=== PATIENT | female | born 1960 | race Caucasian/White ===

== ENCOUNTER → 2017-03-27 | Outpatient (CLI) | payer OTHER ==
--- NOTE | 2017-03-27 17:46 | DIAGNOSTIC IMAGING REPORT ---
CHEST 2 VIEWS ROUTINE CLINICAL HISTORY: 56 years-old Female presenting with HX OF SKIN MALIGNANCY OF SKIN MALIGNANCY. TECHNIQUE: PA and lateral views of the chest were obtained. COMPARISON: CT of the chest from 2015. FINDINGS: Atherosclerosis of aortic arch. Cardiac silhouette normal in size. Lungs and pleural spaces clear. Osseous structures normal. Cholecystectomy clips noted. IMPRESSION: 1. No acute cardiopulmonary disease. Notably, the sensitivity of radiography for intrathoracic metastases is low. If there is clinical concern for thoracic metastatic involvement, CT of the chest should be obtained. Electronically signed by: Luis Antonio Spencer M.D. 03/27/2017 5:44 PM Dictated Date/Time: 03/27/2017 5:43 PM
== END | disposition home or self-care (01) ==
LOC: C.RAD 16:48
PROVIDERS: ATTEND Dermatology
DX: Z85.828 Personal history of other malignant neoplasm of skin (principal)

== ENCOUNTER → 2017-05-21 | Outpatient (CLI) | payer OTHER ==
--- NOTE | 2017-05-21 20:21 | DIAGNOSTIC IMAGING REPORT ---
CERVICAL SPINE MRI HISTORY: Neck pain. M48.02 Degenerative cervical spinal stenosis [id number] TECHNIQUE: Multiplanar multisequence MRI of the cervical spine was performed without the use of contrast. COMPARISON STUDY: Neck CT 06/10/2015. FINDINGS: Alignment and curvature intact. No fracture or subluxation. Prevertebral soft tissues and the C1-C2 interval are intact. The visualized posterior fossa is unremarkable. There is a 1.7 cm heterogeneous right thyroid nodule. Mild to moderate disc space narrowing at C5-C6 and C6-C7. Cervical spinal cord demonstrates a normal signal intensity. C2-C3: No significant central canal or neural foraminal narrowing. C3-C4: No significant central canal or neural foraminal narrowing. Tiny broad-based posterior disc bulge. C4-C5: No significant central canal or neural foraminal narrowing. Tiny broad-based posterior disc bulge. C5-C6: Broad-based posterior disc osteophyte complex resulting in near-complete effacement of the anterior thecal sac without cord deformity. Moderate right and severe left neural foraminal narrowing. C6-C7: Small broad-based posterior disc osteophyte complex without significant central canal or right-sided neural foraminal narrowing. There is mild left-sided neural foraminal narrowing. C7-T1: No significant central canal or neural foraminal narrowing. IMPRESSION: 1. Broad-based posterior disc osteophyte complex at C5-C6 resulting in mild central canal narrowing. There is also moderate right and severe left-sided neural foraminal narrowing. 2. Mild left-sided neural foraminal narrowing at C6-C7. 3. Tiny broad-based posterior disc bulges at C3-C4 and C4-C5 without significant central canal narrowing Electronically signed by: Cam Perez M.D. 05/21/2017 8:19 PM Dictated Date/Time: 05/21/2017 8:13 PM
== END | disposition home or self-care (01) ==
LOC: C.MRI 18:55
PROVIDERS: ATTEND Psychiatry & Neurology Neurology
DX: M48.02 Spinal stenosis, cervical region (principal)

== ENCOUNTER 2023-11-13 05:12 | Observation (INO) ==
--- NOTE | 2023-10-22 11:52 | PAT Medication Instructions ---
Medication Instructions Date of Service October 22, 2023 Home Medications omeprazole 40 mg capsule,delayed release 40 mg PO QAM adalimumab 40 mg/0.8 mL subcutaneous syringe kit (Humira) 40 mg subcut Q14D ezetimibe 10 mg tablet 10 mg PO QAM alirocumab 150 mg/mL subcutaneous pen injector (Praluent Pen) 150 mg subcut Q14D duloxetine 60 mg capsule,delayed release 60 mg PO QAM ASK your prescriber and surgeon adalimumab 40 mg/0.8 mL subcutaneous syringe kit (Humira) 40 mg subcut Q14D alirocumab 150 mg/mL subcutaneous pen injector (Praluent Pen) 150 mg subcut Q14D Take morning of surgery With a small sip of water, OTHERWISE NOTHING TO EAT OR DRINK AFTER MIDNIGHT: omeprazole 40 mg capsule,delayed release 40 mg PO QAM ezetimibe 10 mg tablet 10 mg PO QAM duloxetine 60 mg capsule,delayed release 60 mg PO QAM Other Notes If you have any questions please call us at [phone] or [phone] or [phone] or [phone]
--- NOTE | 2023-10-25 12:13 | Anesthesiology Consultation ---
Date of Service October 25, 2023 Assessment & Plan (1) Encounter for pre-operative examination: - awaiting response to optimization form regarding ongoing albuterol inhaler use and 1 cm left upper lobe nodule (pt mentioned at PAT visit she was overdue for monitoring imaging of nodule) and upcoming PCP office visit 10/28/23 per patient. - will request most recent Dr. Mccord cardiology office visit note and any available echocardiogram or stress echo testing if completed. - PONV: has had scop patch in past with benefit without adverse effects: to anesthesiologist determination am DOS regarding plan. Chart Review Chart Review: Pending: Refer to Additional Notes / Consult section and Patient seen in Pre Admission Testing Teaching & Discussion Pre-Anesthesia Teaching/Discussion Notes: Instructed NPO after midnight before surgery, except medications with 15 cc of water. Medication instructions provided according to the [facility] guidelines. History Surgery Operation Date: 11/13/23 07:00 Proposed Procedures p Right Total Hip Arthroplasty Possible Cemented Stem - Christopher Bonilla MD Height/Weight Height: 5 ft 7 in Weight: 79.5 kg Allergies Allergy/AdvReac Type Severity Reaction Status Date / Time guselkumab [From Tremfya] Allergy Mild Rash Verified 10/22/23 08:54 Medications Home Medications Medication Instructions Recorded Confirmed Last Taken omeprazole 40 mg capsule,delayed 40 mg PO QAM 03/18/19 10/22/23 09/25/23 release adalimumab 40 mg/0.8 mL 40 mg subcut Q14D 04/08/19 10/22/23 09/10/23 subcutaneous syringe kit (Humira) ezetimibe 10 mg tablet 10 mg PO QAM 05/31/21 10/22/23 09/10/23 alirocumab 150 mg/mL subcutaneous 150 mg subcut Q14D 09/06/23 10/22/23 09/15/23 pen injector (Praluent Pen) duloxetine 60 mg capsule,delayed 60 mg PO QAM 09/06/23 10/22/23 09/25/23 release albuterol 90 mcg/actuation aerosol mcg inhalation 10/25/23 Unknown inhaler ibuprofen 200 mg tablet 200 mg PO Q6H PRN Pain 10/25/23 10/25/23 Unknown oxymetazoline 0.05 % nasal spray 2 spray intranasal Q12H PRN Nasal 10/25/23 10/25/23 Unknown (Long Acting Nasal [place]) Congestion vitamin C 500 mg-multivitamin with 1 tab PO BID 10/25/23 10/25/23 Unknown minerals chewable tablet (Emergen-C) Additional Notes: Patient was instructed to discuss ibuprofen instructions with surgeon. Emergen-C to be stopped 2 weeks before surgery. She was advised she can take a Vitamin C, zinc supplement for her immune health. She was advised can continue nasal spray as usual. She verbalized understanding and agreement, denied questions, concerns or additional medications. This was also written on provided medication instructions. 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 Lumbar disc herniation Lung nodules found on MRI chest Nausea and vomiting after administration of anesthetic agent had scop patch with second cataract procedure-denies adverse effects Palmoplantar pustular psoriasis Patient denies h/o stroke, seizures, heart attack, heart failure, DM, HTN, blood clots/DVTs or blood transfusions. Exercise / Class Metabolic Activity III < 4 Walking/Shop/Light housework (denies chest discomfort or shortness of breath with usual activities) Past Family History Family History Father Cardiac disorder Other No family history of adverse response to anesthesia Past Surgical History Surgical History History of bilateral tubal ligation History of colonoscopy History of esophagogastroduodenoscopy (EGD) History of lung biopsy History of tooth extraction Hx of cataract extraction R/L S/P cholecystectomy S/P knee surgery left Past Anesthesia History No Hx of Anesthesia Complications and No Family Hx of Anesthesia Complications History of PONV No Hx of Motion Sickness and History of PONV (with first cataract, had scop patch for second cataract procedure without adverse effects) Social History Smoking Status: Current every day smoker (-advised) Smoking cigarettes per day: 20 Do You Dip or Chew Tobacco: No Hx Alcohol Use: No Hx Substance Use: Yes substance use type: marijuana (-advised) Last Used Substance Other:: daily Review of Systems 10/13/23: pharyngitis, cough, nasal congestion, diagnosed by PCP as having bronchitis-Rx albuterol inhaler, Z pack and prednisone taper which are all completed and symptoms resolved. She reports slight recurrence of nasal congestion several days ago-resolved the past several days/feels back at baseline. She continues to use albuterol inhaler in evening as notes it resolves coughing at night which preceded 10/13/23 illness. Denies change in chronic cough the past few days, shortness of breath, wheezing, fever, chills, rash, myalgias, nausea or vomiting. Occasional snoring, denies witnessed apneas. Patient denies chest pain, shortness of breath, or dyspnea on exertion. Physical Exam Vital Signs Vitals BP 107/64 P 76 TEMP 98 SP02 94% on RA RESP 17 Physical Patient resting comfortably in chair in no acute distress, alert and oriented, responding appropriately throughout visit Full cervical extension range of motion without pain TMD 3.5 finger breadths Mallampati Score 2 Dentition: full upper and lower implants placed yesterday (patient states surgeon is aware)-I also notified surgeon's office, denies chipped or loose implants Lungs: normal respiratory effort. Good air movement, clear throughout to auscultation, no adventitious breath sounds Cardiac: regular rate and rhythm, no murmurs noted Carotid arteries: negative bruit bilat Lab Results Anesthesia Preop Results Results Anesthesia Widget: WBC 10.64 K/ul (4.8-10.8) 10/25/23 Hgb 14.0 g/dl (12.0-16.0) 10/25/23 Hct 40.9 % (37.0-47.0) 10/25/23 Plt 393 K/uL (130-400) 10/25/23 Na 140 mmol/L (136-145) 10/25/23 K 4.2 mmol/L (3.5-5.1) 10/25/23 Cl 109 mmol/L (98-107) H 10/25/23 CO2 24 mmol/L (21-32) 10/25/23 BUN 16 mg/dl (6-23) 10/25/23 Creat 0.60 mg/dl (0.6-1.2) 10/25/23 Glucose Level 88 mg/dl (70-99(Fasting)) 10/25/23 PT 10.0 Seconds (9.0-12.0) 10/25/23 PTT 29 Seconds (21-31) 10/25/23 INR 0.9 (0.9-1.1) 10/25/23 TSH 0.845 uIu/ml (0.300-4.500) 10/25/23 Urine Color Dark Yellow 10/25/23 Urine Appearance Clear (Clear) 10/25/23 Urine pH 5.5 (4.5-7.5) 10/25/23 Urine Specific [place] 1.024 (1.000-1.030) 10/25/23 Urine Protein Negative (Negative) 10/25/23 Urine Glucose (UA) Negative (Negative) 10/25/23 Urine Ketones Negative (Negative) 10/25/23 Urine Blood Negative (Negative) 10/25/23 Urine Nitrite Negative (Negative) 10/25/23 Urine Bilirubin Negative (Negative) 10/25/23 Urine Urobilinogen Negative (Negative) 10/25/23 Urine Leukocyte Esterase Negative (Negative) 10/25/23 Blood Type A Positive 10/25/23 Antibody Screen NEGATIVE 10/25/23 Testing Electrocardiogram Date: 10/25/23 NSR, rate 69 bpm Chest X-Ray Date: 10/25/23 A 1 cm left upper lobe nodule. Follow-up chest CT recommended for further evaluation. This report was called/faxed to the referring physician following dictation.
--- NOTE | 2023-10-30 16:47 | History & Physical Report ---
Date of Service October 30, 2023 Assessment & Plan (1) Osteoarthritis of right hip: Plan: PRE-OP Diagnosis: Right hip osteoarthritis Planned Procedure: Right total hip arthroplasty possible cemented stem Plan: Patient is scheduled to undergo this procedure at the [facility] with a 23-hour observation admission with Dr. Bonilla on Monday, November 13, 2023. Risks and complications of the procedure such as: Infection, bleeding, pain, scarring, nerve blood vessel damage, weakness, wound problems, stiffness, incomplete relief of symptoms, hardware failure, hardware loosening, wear, fracture, tendon or ligament injury, dislocation, limb length inequality, blood clots, embolism, heart attack, stroke and were explained to the patient at her visit today. Informed consent to perform the procedure injury will be signed with Dr. Bonilla present on the day of the procedure. Patient also understands risks of proceeding with surgical intervention during the COVID-19 pandemic. Currently she is asymptomatic has not been in contact with anyone positive for the virus recently. 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 She is scheduled to meet with physical therapy today and we will obtain a CBC with differential, complete metabolic panel, PT/INR, PTT, blood type and screen, urinalysis, urine culture and sensitivity, EKG, chest x-ray. Patient's chest x-ray showed a mass in her left upper lobe and a CT scan performed after discharge from our clinic. Patient states that she plans on doing in-home physical therapy for the first 1 to 2 weeks postoperatively and then would like to transition to outpatient physical therapy in our PT clinic.. Patient will need a walker, raised toilet seat, shower chair and a hip kit. During today's visit we reviewed the total hip packet as well as precautions. We discussed discharge planning from the hospital. I provided paperwork to obtain a handicap placard for their vehicle. We discussed lectures offered by [facility] in regards to joint replacement surgery via Zoom. I advised the patient that upon discharge from hospital we will prescribe a narcotic pain medication and anti-inflammatory. Patient will also be on an Eliquis twice daily for blood clot prevention. Patient will be scheduled for 2- week postoperative follow-up visit with Bryce Garcia on November 27. This chart was completed utilizing dragon dictation voice recognition software. Grammatical errors, random word insertions, pronoun errors, and in complete sentences are an occasional consequence of the system. Any questions or concerns about the content, text, or information contained within the body of this dictation should be addressed directly to the physician for clarification. History of Present Illness Chief Complaint: Chief Complaint: Right hip pain Primary Care Provider: KATHERINE Gonsalez History of Present Illness (including history relevant to procedure): This 63-year-old female presents to the clinic today for her preoperative history and physical examination. The patient reports she has had issues with the right hip for approximately 10 years. Does not recall any specific trauma. However, it has progressively worsened over the last 10 years. She is now to the point where she has difficulty sleeping. She non-reciprocates stairs. She has had back issues in the past and up until recently thought it was simply her back. However, she feels the pain currently in her groin as well as her buttock. Occasionally, she will get some numbness down her leg into her toes. Often times, she will feel like someone is stabbing her in her anterior right thigh. She has previously done physical therapy before the COVID-19 pandemic for about 6 weeks that only made it worse. She has also been to Pain Management where she has gotten 2 different injections into her low back and her SI joint. She states she also had an ultrasound-guided corticosteroid injection into her right hip which did not provide any pain relief. She is electing to proceed with surgical intervention at this time. Review Of Systems: A 12 point review of systems is performed and is unremarkable except for those things stated in the HPI and past medical history. Past Medical History: Problems: Lung mass Osteoarthritis of right hip Arthritis of right hip PVC (premature ventricular contraction) Hyperlipidemia Right hip pain Notalgia paresthetica Low back pain Psoriatic arthritis Common wart Changing skin lesion Drug rash Epidermal cyst Chronic daily headache Long-term use of high-risk medication Shortness of breath Psoriasis vulgaris Actinic keratoses Weight disorder BCC (basal cell carcinoma of skin) Elevated cholesterol Hypertension Tobacco abuse FAMILY HISTORY OF OTHER SPECIFIED MALIGNANT NEOPLASM Psoriatic arthritis Palmoplantaris pustulosis History of malignant neoplasm of skin Psoriasis Procedure History Procedure Procedure Date Comments Arthroscopy and biopsy of knee - 2005 Cholecystectomy - November 2004 Oral surgery 10/2021 Shave biopsy and cauterization of skin 06/28/2021 Injection into joint - SI 05/09/2021 Shave biopsy of skin 04/01/2019 Chest x-ray 01/15/2018 - IMPRESSION: No active disease in the chest Excision 10/21/2017 - 2 cysts Injection around joint 07/08/2017 - Right shoulder injected with 40 mg Depomedrol and 1 mL 2% lidocaine. MRI of cervical spine 05/21/2017 - Broad based posterior disc osteophyte complex at C5-C6 resulting in mild central canal naarrowing. There is also moderate and severe let-sided neural foraminal narrowing. Mild left sided neural foraminal narrowing at C6-C7. TIny broad-based posterior disc bulges at C3-C4 and C4-C5 without ignificant central canal narrowing. Chest x-ray 03/27/2017 - IMPRESSION:No acute cardiopulmonary disease. Notably, the sinsitivity of radiograph for intrathoracic metastases is low. If there is clinical concernfor thoracic metastatic involvement, CT of the chest should be obtained. Mammogram 08/02/2015 - IMPRESSION:OVAL NODULE MEASURING 3 MM WIDE X 5 MM LONG, UNCHANGED. BENIGN, NO EVIDENCE OF MALIGNANCY. NORMAL F/U IS RECOMMENDED IN 12 MO. ULTRASOUND BREAST LIMITED 08/02/2015 - LEFT BREAST: OVAL NODULE MEASURING 3 MM WIDE X 5 MM LONG, UNCHANGED. BENIGN, NO EVIDENCE OF MALIGNANCY. NORMAL F/U IS RECOMMENDED IN 12 MO.COMPLEX CYST ON U/S, DECREASED IN SIZE.. BEGIGN, NO EVIDENCE OF MALIGNANCY. NORMAL F/U RECOMMENDED IN 12 MO.RIGHT BREAST: NEGATIVE, NO EVIDENCE OF MALIGNANCY. NORMAL F/U RECOMMENDED IN [address] of sinuses 02/08/2015 - IMPRESSION: Negative sinus CT Diagnostic mammogram 02/04/2015 - IMPRESSION: Left breast: probably benign Bi Rad CAT 3Overall assessment- CAT 3- Probably benign short term follow up with unilateral left breastUltrasound at the time of patients annual mammogram. ULTRASOUND BREAST LIMITED 02/04/2015 - Targeted U/S demonstrates a complex cyst measuring 4 mm wide x 2 mm long x 2 mm high at 6 o'colck middle depth, unchanged. Colonoscopy 11/22/2014 - Hyperplastic polyp, repeat in 10 years.Colonoscopy completed by Dawit Thurston MD MRI of cervical spine 08/25/2014 - 1. Small to moderate C4-5 disk protrusion without significant central canal compromise or foraminal encroachment at this level.2. Moderate diffuse annular bulging at C5-6 with associate central canal stenosis andbilateral foraminal narrowing as descrbied above.3. No cervical cord compression or cord edema observed. Shave biopsy of skin 10/05/2011 Tubal ligation 1992 Allergies and Sensitivities: Tremfya(Rash) Current Home Meds: (Last Updated 10/24 14:16) DULoxetine (DULoxetine 60 mg oral delayed release capsule) 60 mg PO Daily adalimumab (Hyrimoz Prefilled Pen 40 mg/0.4mL subcutaneous kit) inject 1 pen under the skin every 14 days albuterol (Albuterol (Eqv-Proventil HFA) 90 mcg/inh inhalation aerosol) 20 g, 0 Refill(s), INHALE 2 PUFFS BY MOUTH 4 TIMES A DAY NEEDED FOR COUGH, WHEEZING OR SHORTNESS OF BREATH. Responsible Provider: NARINDER HEALY 10/24 14:16 alirocumab (Praluent Pen 150 mg/mL subcutaneous solution) 150 mg subQ [id number] ezetimibe (Zetia 10 mg oral tablet) 10 mg PO Daily ibuprofen (Advil 200 mg oral tablet) 400 mg PO Daily naproxen 220 mg PO q12h omeprazole (omeprazole 40 mg oral delayed release capsule) 40 mg PO Daily Initial Wt: 10/24 77.0 kg 169 lb Allergies Allergy/AdvReac Type Severity Reaction Status Date / Time guselkumab [From Alan] Allergy Mild Rash Verified 10/22/23 08:54 Home Medications Medication Instructions Recorded Confirmed Type omeprazole 40 mg capsule,delayed 40 mg PO QAM 03/18/19 10/22/23 History release adalimumab 40 mg/0.8 mL 40 mg subcut Q14D 04/08/19 10/22/23 History subcutaneous syringe kit (Humira) ezetimibe 10 mg tablet 10 mg PO QAM 05/31/21 10/22/23 History alirocumab 150 mg/mL subcutaneous 150 mg subcut Q14D 09/06/23 10/22/23 History pen injector (Praluent Pen) duloxetine 60 mg capsule,delayed 60 mg PO QAM 09/06/23 10/22/23 History release albuterol 90 mcg/actuation aerosol mcg inhalation 10/25/23 History inhaler ibuprofen 200 mg tablet 200 mg PO Q6H PRN Pain 10/25/23 10/25/23 History oxymetazoline 0.05 % nasal spray 2 spray intranasal Q12H PRN Nasal 10/25/23 10/25/23 History (Long Acting Nasal [place]) Congestion vitamin C 500 mg-multivitamin with 1 tab PO BID 10/25/23 10/25/23 History minerals chewable tablet (Emergen-C) Past Med/Surg History Medical History History of marijuana use daily use Nausea and vomiting after administration of anesthetic agent had scop patch with second cataract procedure-denies adverse effects Arthritis History of skin cancer left protestant s/p excision History of anemia as a child-unknown cause-unsure if needed transfusion Hyperlipidemia Hx of essential hypertension controlled, stable per pt Immunosuppression due to drug therapy Lumbar disc herniation Palmoplantar pustular psoriasis GERD (gastroesophageal reflux disease) controlled, stable per pt Anxiety Degenerative disc disease Irregular heart beat Dr. Mccord Remediation Consultant-associated palpitations-chronic, denies change or worsening-denies associated chest discomfort, shortness of breath, dizziness/lightheadedness or syncope. Lung nodules found on MRI chest Surgical History Hx of cataract extraction R/L History of lung biopsy History of esophagogastroduodenoscopy (EGD) History of colonoscopy History of tooth extraction S/P cholecystectomy S/P knee surgery left History of bilateral tubal ligation Family History Father Cardiac disorder Other No family history of adverse response to anesthesia Social History Smoking Status: Current every day smoker (-advised) Tobacco Type: Cigarettes packs per day: 0.5; Cigarettes Per Day: 20; Second Hand Exposure: No; Do You Dip or Chew Tobacco: No; Hx Alcohol Use: No Hx Substance Use: Yes Last Used Substance Other:: daily Preferred Language: Kyrgyz Communication Ability: Effective Endocrinologist Required: No Beliefs That Will Affect Care: None Current Living Situation: Spouse Feels Safe at Home: Yes Assistive Devices: Crutches Review of Systems All systems reviewed & are unremarkable except as noted in Subjective Physical Exam Physical Exam: Physical Exam: (relevant to the procedure, including heart and lung evaluation) General: Alert and oriented x 3 with proper grooming and hygiene Eyes: Pulls are equal and reactive to light with accommodation. Extraocular movements are intact Throat: Oropharynx clear with absence of edema, erythema or exudate. Patient has dental implants that are completely healed Cardiac: Regular rate and rhythm with no murmurs or gallops appreciated Lungs: Clear to auscultation throughout with no wheezing, rales or rhonchi Abdomen: Nonobese, nondistended, nontender with NABS Extremities: Right hip: Flexion is limited to about 100 degrees, external rotation to 50 degrees and internal rotation to 5 degrees. Patient experiences tenderness to palpation in the groin. She has a positive Stinchfield test. Scour and impingement tests are both positive. Patient walks with a slight antalgic gait. She is neurovascularly intact. Neuro: Cranial nerves II through XII are intact no motor or sensory deficit Skin: Normal in appearance no open skin areas or discharge
[~2023-11-13 05:12] MED LIST: LACTATED RINGER'S 500 ML IV SCH; TETRACAINE HCL 0.5% OPL SCH; [UNRECOGNIZED DRUG - OTHER] OPL SCH; [UNRECOGNIZED DRUG - REMARK] OPL SCH
--- NOTE | 2023-11-13 05:21 | History & Physical Bridge Note ---
Date of Service November 13, 2023 History & Physical Bridge Note I have examined the patient, reviewed the History & Physical and in the interval since the performance of the History & Physical I have noted the following changes of clinical significance: consent and site verified.identified hybrid technique.no changes noted
[2023-11-13] MEDS ORDERED: BUPIVACAINE 0.5 % 5 MG/1 ML PF 10ML VIAL ONE (06:14)
[2023-11-13] MEDS: LR 60ML/HR IV SCH (06:14)
[2023-11-13] MEDS: LR 500ML BOLUS, THEN 15ML/HR IV SCH (06:14)
[2023-11-13] MEDS: traMADol HCL 50 MG TABLET PO SCH (06:17)
[2023-11-13] MEDS: ACETAMINOPHEN 500 MG TAB PO SCH ×2 (06:18→14:32)
[2023-11-13] MEDS: CeleBREX 200 MG CAP PO SCH (06:18)
[2023-11-13] MEDS: Scopolamine 1 MG TDSY TD SCH (06:18)
[2023-11-13] MEDS: FAMOTIDINE 20 MG TAB PO SCH (06:18)
[2023-11-13] MEDS: dexAMETHasone**PF** 10 MG/ML VIAL IV SCH (06:19)
[2023-11-13] MEDS ORDERED: ONDANSETRON INJ 2 MG/ML 2 ML VIAL IV PRN ×2 (06:26→09:44)
[2023-11-13] MEDS ORDERED: ePHEDrine sulfate 50 MG/ML AMP IV PRN (06:26)
[2023-11-13] MEDS ORDERED: PROMETHAZINE HCL 6.25 MG in SODIUM CHLORIDE 0.9% 50 ML IV PRN (06:26)
[2023-11-13] MEDS ORDERED: fentaNYL citrate PF 100 MCG/2 ML VIAL IV PRN (06:26)
[2023-11-13] MEDS ORDERED: ATROPINE SULFATE 0.1 MG/ML 10ML SYR IV PRN (06:26)
--- OUTSIDE RECORDS SUMMARY | 2023-11-13 06:31 | External Medical Summary | Summary of Care ---
Author Name Unknown Organization [facility] Address [address] [place] [address] Phone [phone] Care Team Providers Care Tar Heater Operator Name Role Phone Vu Brar Primary Care Provider [phone]- [phone] Reason for Visit * Reason Onset Date Comments Pre-Op Testing 10/31/2023 Encounter Details Date Type Department Care Team (Late st Contact Info) Description [facility] [place] [address] Vu Brar CRNP [address] [place] [address] Pre-Op Testing Allergies Active Allergy Reactions Criticality Noted Date Comments Guselkumab Rash 06/08/2019 Tremfya documented as of this encounter (statuses as of 11/08/2023) Medications Medication Sig Dispensed Refills Start Date End Date Status CLOBETASOL PROPIONATE 0.05 % EX GELIndications:Othe r psoriasis apply very thinly to palms and soles 2X a day 60G 5 01/21/2006 Active Adalimumab 40 MG/0.4ML Subcutaneous Pen-injector Kit Inject 0.4 mL under the skin every 14 days. 0 Active Ezetimibe 10 MG Oral Tablet (Zetia)Indications: Hyperlipidemia with target LDL less than 100 Take by mouth 1 Tablet in the evening. 90 Tablet 3 04/30/2022 Active Cyclobenzaprine HCl 10 MG Oral Tablet (Flexeril)Indicatio ns:Acute midline low back pain without sciatica Take 1 Tablet by mouth 3 times a day as needed for Muscle spasms. 30 Tablet 1 09/18/2022 Active Additional Information Patient not taking.Reported on 10/28/2023 Praluent 150 MG/ML Subcutaneous Solution Auto-injector Inject 150 mg into a large muscle every 14 days. 0 11/13/2022 Active Omeprazole 40 MG Oral Capsule Delayed Release (PriLOSEC) Take 1 Capsule by mouth in the morning. 90 Capsule 3 02/08/2023 Active DULoxetine HCl 60 MG Oral Capsule Delayed Release Particles (Cymbalta) TAKE 1 CAPSULE BY MOUTH EVERY DAY 90 Capsule 2 10/09/2023 Active Proventil HFA 108 (90 Base) MCG/ACT Inhalation Aerosol SolutionIndications :Bronchitis, complicated Inhale 2 Puffs by mouth 4 times a day as needed for Cough, Wheezing or Shortness of Breath. 18 g 0 10/13/2023 Active Azelastine HCl 0.1 % Nasal SolutionIndications :Viral URI with cough 2 sparys in each nostril twice a day 30 mL 5 10/28/2023 Active Emergen-C Vitamin C Oral Tablet Chewable Take by mouth. 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 Degenerative disc disease, lumbar 03/09/2005 Overview: Followed by [facility]- Dr Wilkerson Tobacco use disorder 03/09/2005 Overview: 03/09/05 - 1-2 ppd for 25+ years Esophageal reflux Essential hypertension with goal blood pressure less than 140/90 Psoriatic arthropathy Overview: Followed by ne, using Humira Lumbar neuritis Pure hypercholesterolemia Overview: Followed by Dr Mccord at [facility] Malignant basal cell neoplasm of skin Overview: Followed by ne at [facility] documented as of this encounter (statuses as of 11/08/2023) Resolved Problems Problem Noted Date Diagnosed Date Resolved Date Tobacco abuse 04/25/2015 10/31/2020 documented as of this encounter (statuses as of 11/08/2023) Immunizations Name Administration Dates Next Due COVID-19 mRNA, LNP-s, No Pre serve, 2-Dose Series (Moderna) 07/05/2021,10/08/2020,09/10/2020 Pneumococcal Polysaccharide PPV23 (Pneumovax) 05/10/2014 Seasonal Influenza, PF, 6 M & above, IM , (FluLaval or Fluzone) 05/20/2023,04/30/2022,05/02/2020,04/09 Seasonal Influenza, Quadriva lent, No Preserve, IM 04/28/2016 Seasonal Influenza, Split, I IV3, With Preserve, Inj 05/16/2015,05/10/2014,07/08/2013,06/23,04/28/2010 TDAP (age 11 and older)(Adacel) 12/21/2011 documented as of this encounter Social History Tobacco Use Types Packs/Day Years Used Date Smoking Tobacco: Every Day Cigarettes 1 48.3 Started: 07/29/1975 Smokeless Tobacco: Never Comments:08/01/20 currently smoking 1 ppd Alcohol Use Standard Drinks/Week Comments No 0 (1 standard drink = 0.6 oz pure alcohol) Formally drank very rarely- 05/12/19 PHQ-2 Answer Date Recorded PHQ Adult Total Score 0 03/05/2022 Hunger Vital Sign Answer Date Recorded Within the past 12 months, y ou worried that your food would run out before you got the money to buy more. Never true 02/09/20 23 Within the past 12 months, t he food you bought just didn't last and you didn't have money to get more. Never true 02/08/2023 Sex and Gender Information Value Date Recorded Sex Assigned at Female 01/05/2019 2:20 PM EDT Gender Identity Female 01/05/2019 2:20 PM EDT Sexual Orientation Straight 01/05/2019 2: 20 PM EDT Job Start Date Occupation Industry Not on file Not on file Not on file documented as of this encounter Miscellaneous Notes * Telephone Encounter - Frida Ku CMA - 11/08/2023 12:53 PM EDT Pre op form completed by Vu after reviewing stress test. I left detailed msg to inform Felicitas Sullivan at [facility] of this. Faxed OV note and form to [facility] with confirmation. Placed in company secretary bin to be scanned. Pt aware. * Telephone Encounter - Firda Ku CMA - 11/07/2023 3:11 PM EDT Received stress test from [facility]. Will give to Vu tomorrow when she is office. Pt aware of this. * Telephone Encounter - Frida Ku CMA - 11/06/2023 9:45 AM EDT Waiting on stress test from Saturday to clear pt. I was told last wk, that office would be faxing it to us once resulted, but we have yet to receive it. Called [facility] and they have not faxed it. They asked for a fax from us on our CS. I faxed request to [facility] for stress test to [phone] with confirmation. Pre op form is at my desk * Telephone Encounter - Frida uK CMA - 10/31/2023 10:39 AM EDT Pt had pre op appt with vu on 10/28/23. Form is t my desk. Vu is awaiting stress echo results, labs and CXR to sign note and clear pt for surgery. I received a call from [facility] advising she is monet for stress echo tomorrow 11/01/23. She will fax the stat chest CT to us at [phone]. Labs and CXR are now scanned into [employer]. documented in this encounter Plan of Treatment Upcoming Encounters Date Type Department Care Team (Late st Contact Info) Description 12/12/2023 5:00 PM EDT [facility] [place] [address] [phone] Vu Brar CRNP [address] [address] Scheduled Procedures Name Priority Associated Diagnoses Date/Ti me COLONOSCOPY FLEXIBLE PROXIMA L DIAGNOSTIC Recall Personal history of colonic polyps Health Maintenance Due Date Last Done Comments Alpha-1 Antitrypsin 1979 Zoster Vaccines (1 of 2) 1980 Cologuard 2006 Fecal Occult Blood Test 2006 Sigmoidoscopy 2006 Pneumococcal Vaccine: Pediatrics (0 to 5 Years) and At-Risk Patients (6 to 64 Years) (3 of 3 - PCV) 05/10/2015 05/10/2014, 05/19/2009 DISCUSS TOBACCO CESSATION (REFER TO SMARTSET #3291) 07/31/2020 07/31/2019, 06/29/2019 DTaP,Tdap,and Td Vaccines (2 - Td or Tdap) 12/20/2021 12/21/2011 Depression Screening 03/05/2023 03/05/2022 COVID-19 Vaccine (4 - 2022- season) 2023 07/05/2021, 10/08/2020, 09/10/2020 Mammogram 05/20/2024 05/20/2023, 06/0 03/2021, 01/04/2021, Additional history exists GFR 10/24/2024 10/25/2023, 10/28, 10/31/2021, Additional history exists O2 ASSESSMENT COMPLETED IN PAST YEAR FOR COPD 10/27/2024 10/28/2023 Colonoscopy 11/22/2024 11/22/2014, 11/22/2014 Colorectal Cancer Screening 11/22/2024 Albumin/Creatinine Ratio 11/16/2025 11/16/2022 Pap Smear 02/08/2026 02/08/2023, 03/01/2019, 06/04/2011 Diabetes Screening 10/24/2026 10/25/2023, 0 11/16/2022, 10/31/2021, Additional history exists Cervical Cancer Screening 02/09/2028 HPV/Co-Test 02/09/2028 02/08/2023 Lipid Panel 10/24/2028 10/25/2023, 10/28, 04/11/2022, Additional history exists Influenza Vaccine (FLU shot) Completed , 04/30/2022, 05/02/2020, Additional history exists GARDASIL-HPV IMMUNIZATION SERIES Aged Out No longer eligible based on patient's age to complete this topic Hepatitis B Aged Out No longer eligi ble based on patient's age to complete this topic MENINGOCOCCAL (MENACTRA/MENVEO) Aged Out No longer eligible based on patient's age to complete this topic documented as of this encounter Medical Devices Not on filedocumented as of this encounter Care Teams Tar Heater Operator Relationship Specialty Start Date End Date Vu Brar CRNP [address] [facility] [address] [place] [id number] PCP - General Nurse Practitioner 11/16/22 documented as of this encounter
--- OUTSIDE RECORDS SUMMARY | 2023-11-13 06:31 | External Medical Summary | Summary of Care ---
Author Name Unknown Organization [facility] Address [address] [place] [address] Phone [phone] Care Team Providers Care Box Press Operator Name Role Phone Vu Brar Primary Care Provider +1- [phone] Reason for Visit * Reason Onset Date Comments Pre-Op Testing 10/31/2023 Encounter Details Date Type Department Care Team (Late st Contact Info) Description 10/31/2023 [facility] [address] [place] [address] Vu Brar CRNP [address] [place] [address] Pre-Op Testing Allergies Active Allergy Reactions Criticality Noted Date Comments Guselkumab Rash 06/08/2019 Tremfya documented as of this encounter (statuses as of 11/07/2023) Medications Medication Sig Dispensed Refills Start Date [...] as of this encounter (statuses as of 11/07/2023) Active Problems Problem Noted Date Diagnosed Date COPD, group B, by GOLD 2017 classification 03/11 Overview: Per COPD GOLD Classification Anxiety 10/31/2021 Centrilobular emphysema 01/13/2021 Lung nodule 10/13/2019 Overview: Followed by Dr Grier at [facility] Impingement syndrome of right shoulder 7 Encounter for long-term (current) use of medicat ions 03/25/2017 Gastroesophageal reflux disease without esophagi tis 04/25/2015 DDD (degenerative disc disease), cervical 2014 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 Degenerative disc disease, lumbar 03/09/2005 Overview: Followed by [facility] Management- Dr Wilkerson Tobacco use disorder 03/09/2005 Overview: 03/09/05 - 1-2 ppd for 25+ years Esophageal reflux Essential hypertension with goal blood pressure less than 140/90 Psoriatic arthropathy Overview: Followed by ne, using Humira Lumbar neuritis Pure hypercholesterolemia Overview: Followed by Dr Mccord at [facility] Malignant basal cell neoplasm of skin Overview: Followed by ne at [facility] documented as of this encounter (statuses as of 11/07/2023) Resolved Problems Problem Noted Date Diagnosed Date Resolved Date Tobacco abuse 04/25/2015 10/31/2020 documented as of this encounter (statuses as of 11/07/2023) Immunizations Name Administration Dates Next Due COVID-19 [...] we have yet to receive it. Called [facility] and they have not faxed it. They asked for a fax from us on our CS. I faxed request to [facility] for stress test to [phone] with confirmation. Pre op form is at my desk * Telephone Encounter - Frida Ku CMA - 10/31/2023 10:39 AM EDT Pt had pre op appt with vu on 10/28/23. Form is t my desk. Vu is awaiting stress echo results, labs and CXR to sign note and clear pt for surgery. I received a call from [facility] advising she is monet for stress echo tomorrow 11/01/23. She will fax the stat chest CT to us at [phone]. Labs and CXR are now scanned into [facility]. documented in this encounter Plan of Treatment Upcoming Encounters Date Type Department Care Team (Late st Contact Info) Description 12/12/2023 5:00 PM EDT [place] [facility] [place] [place] [address] [phone] Vu Brar CRNP [address] [address] Scheduled Procedures Name Priority Associated Diagnoses Date/Ti [...] 12/21/2011 Depression Screening 03/05/2023 03/05/2022 COVID-19 Vaccine ( - season) 2023 07/05/2021, 10/08/2020, 09/10/2020 Mammogram 05/20/2024 05/20/2023, 06/0 03/2021, 01/04/2021, Additional history exists GFR 10/24/2024 10/25/2023, 10/28, 10/31/2021, Additional history exists O2 ASSESSMENT COMPLETED IN PAST YEAR FOR COPD 10/27/2024 10/28/2023 Colonoscopy 11/22/2024 11/22/2014, 11/22/2014 Colorectal Cancer Screening 11/22/2024 Albumin/Creatinine Ratio 11/16/2025 11/16/2022 Pap Smear 02/08/2026 02/08/2023, 03/0 01/2019, 06/04/2011 Diabetes Screening 10/24/2026 10/25/2023, 0 11/16/2022, [...] filedocumented as of this encounter Care Teams Box Press Operator Relationship Specialty Start Date End Date Vu Brar CRNP [address] [id number] PCP - General Nurse Practitioner 11/16/22 documented as of this encounter
--- OUTSIDE RECORDS SUMMARY | 2023-11-13 06:31 | External Medical Summary | Continuity of Care Document ---
Author Name Unknown Organization [id number] Address [address] [place] [id number] Encounter [facility] [id number] Date(s): 11/06/23 - 11/06/23 [facility] [address] [id number] [facility] Medicine [address] [place] [address] Encounter Diagnosis Arthritis of right hip(Discharge Diagnosis) - 11/06/23 Discharge Disposition: Home or Self Care Attending Physician: MD Bonilla Wayne J Allergies, Adverse Reactions, Alerts Substance Reaction Severity Status Tremfya Rash Active Assessment and Plan Extracted from: Title:Clinical Document Author:MD Bonilla Wayne J Date:11/06/23 OUTPATIENT NOTE Name: TRIXIE SEVERINO I Patient Number:[id number] : 1960 Date of Service: 11/06/2023 X-rays ordered interpreted today by me 2 views reveals osteoarthritis of the right hip enchondroma of the right proximal femur without change. Immunizations Given and Recorded Vaccine Date Status Refusal Reason influenza virus vaccine, inactivated 04/09/17 Give n influenza virus vaccine, inactivated 04/16/16 Give n pneumococcal 23-valent vaccine 05/10/14 Recorded tetanus/diphtheria/pertuss, acel (Tdap) 12/21/11 R ecorded Medications Advil 200 mg oral tablet Start: 10/23/23 10:18:00 EDT, 2 tab, PO, Daily Start Date: 10/23/23 Status: Ordered Albuterol (Eqv-Proventil HFA) 90 mcg/inh inhalation aerosol Start: 10/25/23 14:16:00 EDT, 20 g, 0 Refill(s), INHALE 2 PUFFS BY MOUTH 4 TIMES A DAY NEEDED FOR COUGH, WHEEZING OR SHORTNESS OF BREATH. Start Date: 10/25/23 Status: Ordered DULoxetine 60 mg oral delayed release capsule Start: 10/17/22 14:02:00 EDT, 1 cap, PO, Daily Start Date: 10/17/22 Status: Ordered Hyrimoz Prefilled Pen 40 mg/0.4mL subcutaneous kit Start: 09/16/23 8:05:00 EST, See Instructions, Disp# 2 pen_needle, Refills: 7, inject 1 pen under the skin every 14 days, Note to Pharmacy: for prior auth, Pharmacy: [facility] Start Date: 09/16/23 Status: Ordered metoprolol succinate 25 mg oral tablet, extended release Start: 11/04/23 10:17:00 EDT, 1 tab, PO, Daily, Disp# 90 tab, Refills: 3, [id number] Start Date: 11/04/23 Status: Ordered naproxen Start: 10/23/23 10:18:00 EDT, 220 mg =, PO, q12h Start Date: 10/23/23 Status: Ordered omeprazole 40 mg oral delayed release capsule Start: 02/24/18 16:40:14 EDT, 1 cap, PO, Daily, Disp# 90 cap, Refills: 3, [id number] Start Date: 02/24/18 Stop Date: 02/19/19 Status: Ordered Praluent Pen 150 mg/mL subcutaneous solution Start: 11/05/22 9:43:00 EDT, 150 mg =, subQ, [id number], Disp# 6 pen_needle, Refills: 3, [id number] Start Date: 11/05/22 Status: Ordered Zetia 10 mg oral tablet Start: 10/23/23 10:37:00 EDT, 1 tab, PO, Daily, Disp# 90 tab, Refills: 3, [id number] Start Date: 10/23/23 Status: Ordered Problem List Condition Confirmation Course Effective Dates Status H ealth Status Informant Actinic keratoses Confirmed Active Arthritis of right hip Confirmed Active BCC (basal cell carcinoma of skin) Confirmed Active Changing skin lesion Confirmed Active Shortness of breath Confirmed Active Elevated cholesterol Confirmed Active Epidermal cyst Confirmed Active Drug rash Confirmed Active FAMILY HISTORY OF OTHER SPECIFIED MALIGNANT NEOPLASM 1 Confirmed Active Long-term use of high-risk medication Confirmed Active Chronic daily headache Confirmed Active Right hip pain Confirmed Active History of malignant neoplasm of skin Confirmed Active Hyperlipidemia Confirmed Active Hypertension Confirmed Active Low back pain Confirmed Active Lung mass Confirmed Active PVC (premature ventricular contraction) Confirmed Active Notalgia paresthetica Confirmed Active Osteoarthritis of right hip Confirmed Active Palmoplantaris pustulosis Confirmed Active Psoriasis Confirmed Active Psoriasis vulgaris Confirmed Active Psoriatic arthritis Confirmed Active Psoriatic arthritis Confirmed Active Tobacco abuse Confirmed Active Common wart Confirmed Active Weight disorder Confirmed Active 1grandmother and grandfather had skin CA Diagnosis Diagnosis Type Effective Dates Health Status Cl inical Service Informant Arthritis of right hip Discharge Diagnosis 11/06/23 Procedures Procedure Date Related Diagnosis Body Site Status Oral surgery 10/2021 Completed Shave biopsy and cauterization of skin 06/28/21 Completed Injection into joint - SI 05/09/21 Completed Shave biopsy of skin 04/01/19 Comp leted Chest x-ray 1 01/15/18 Completed Excision 2 10/21/17 Completed Injection around joint 3 07/08/17 Completed MRI of cervical spine 4 05/21/17 C ompleted Chest x-ray 5 03/27/17 Completed Mammogram 6 08/02/15 Completed ULTRASOUND BREAST LIMITED 7 08/02/[address] of sinuses 8 02/08/15 Completed Diagnostic mammogram 9 02/04/15 Co mpleted ULTRASOUND BREAST LIMITED 10 02/04/15 Completed Colonoscopy 11 11/22/14 Completed MRI of cervical spine 12 08/25/14 Completed Shave biopsy of skin 10/05/11 Comp leted Tubal ligation 1992 Completed Arthroscopy and biopsy of knee 13 Completed Cholecystectomy 14 Comple kushal 1IMPRESSION: No active disease in the chest 22 cysts 3Right shoulder injected with 40 mg Depomedrol and 1 mL 2% lidocaine. 4Broad based posterior disc osteophyte complex at C5-C6 resulting in mild central canal naarrowing. There is also moderate and severe let-sided neural foraminal narrowing. Mild left sided neural foraminal narrowing at C6-C7. TIny broad-based posterior disc bulges at C3-C4 and C4-C5 without ignificant central canal narrowing. 5IMPRESSION: No acute cardiopulmonary disease. Notably, the sinsitivity of radiograph for intrathoracic metastases is low. If there is clinical concernfor thoracic metastatic involvement, CT of the chest should be obtained. 6IMPRESSION: OVAL NODULE MEASURING 3 MM WIDE X 5 MM LONG, UNCHANGED. BENIGN, NO EVIDENCE OF MALIGNANCY. NORMAL F/U IS RECOMMENDED IN 12 MO. 7LEFT BREAST: OVAL NODULE MEASURING 3 MM WIDE X 5 MM LONG, UNCHANGED. BENIGN, NO EVIDENCE OF MALIGNANCY. NORMAL F/U IS RECOMMENDED IN 12 MO. COMPLEX CYST ON U/S, DECREASED IN SIZE.. BEGIGN, NO EVIDENCE OF MALIGNANCY. NORMAL F/U RECOMMENDED IN 12 MO. RIGHT BREAST: NEGATIVE, NO EVIDENCE OF MALIGNANCY. NORMAL F/U RECOMMENDED IN 12 MO. 8IMPRESSION: Negative sinus CT 9IMPRESSION: Left breast: probably benign Bi Rad CAT 3 Overall assessment- CAT 3- Probably benign short term follow up with unilateral left breast Ultrasound at the time of patients annual mammogram. 10Targeted U/S demonstrates a complex cyst measuring 4 mm wide x 2 mm long x 2 mm high at 6 o'colck middle depth, unchanged. 11Hyperplastic polyp, repeat in 10 years. Colonoscopy completed by Dawit Thurtson MD 121. Small to moderate C4-5 disk protrusion without significant central canal compromise or foraminalencroachment at this level. 2. Moderate diffuse annular bulging at C5-6 with associate central canal stenosis andbilateral foraminal narrowing as descrbied above. 3. No cervical cord compression or cord edema observed. [id number] 14May 2005 Social History Social History Type Response Smoking Status Former Smoker, quit > 1 yr Sex Female Outpatient Note * MD Irene, Christopher Ruelas: PERFORM Event Display: .Outpt Note Authored Date: OUTPATIENT NOTE Name: TRIXIE SEVERINO I Patient Number:1 [id number] : 1960 Date of Service: 11/06/2023 X-rays ordered interpreted today by ca 2 views reveals osteoarthritis of the right hip enchondroma of the right proximal femur without change. Electronic Signature on File Electronically Reviewed/Signed by: Christopher Bonilla MD Author Signature Dt/Tm:11/06/2023 12:30 PM City Letter Carrier for Clinical Affairs, [facility] Professor in Orthopaedics [employer]ists, [facility] JAN Patient Care team information Care Team Personnel Name: Jodie Gaona Kelly B Position: Pharmacist Member Role: Pharmacy - Lifetime Address: Address: [address] [place] [id number] [place] Care Team Related Persons Name: DAFNE SEVERINO Address: home [address], [place] [phone] Name: DOMINIQUE SEVERINO Address: home [address], [place] [id number]
--- OUTSIDE RECORDS SUMMARY | 2023-11-13 06:31 | External Medical Summary | Summary of Care ---
Author Name Unknown Organization [facility] Address [address] [place] [address] Phone [phone] Care Team Providers Care Cloth Doubling Machine Operator Name Role Phone Vu Brar Primary Care Provider [phone]- [phone] Reason for Visit * Reason Onset Date Comments Pre-Op Testing 10/31/2023 Encounter Details Date Type Department Care Team (Late st Contact Info) Description 10/31/2023 [facility] [place] [address] Vu Brar CRNP [address] [place] [address] Pre-Op Testing Allergies Active Allergy [...] 10/13/2019 Overview: Followed by Dr Grier at 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 Degenerative disc disease, lumbar 03/09/2005 Overview: Followed by [facility] Pain Management- Dr Wilkerson Tobacco use disorder 03/09/2005 Overview: 03/09/05 - 1-2 ppd for 25+ years Esophageal reflux Essential hypertension with goal blood pressure less than 140/90 Psoriatic arthropathy Overview: Followed by ne, using Humira Lumbar neuritis Pure hypercholesterolemia Overview: Followed by Dr Mccord at [facility] Malignant basal cell neoplasm of skin Overview: Followed by ne at [facility] documented as of this encounter (statuses as [...] Telephone Encounter - Frida Ku CMA - 11/07/2023 3:11 PM EDT Received stress test from [facility]. Will give to Vu tomorrow when she is office. Pt aware of this. * Telephone Encounter - Frida Ku CMA - 11/06/2023 9:45 AM EDT Waiting on stress test from Saturday to clear pt. I was told last wk, that office would be faxing it to us once resulted, but we have yet to receive it. Called [facility] and they have not faxed it. They asked for a fax from us on our CS. I faxed request to [facility] for stress test to [phone] with confirmation. Pre op form is at my desk * Telephone Encounter - Frida Ku CMA - 10/31/2023 10:39 AM EDT Pt had pre op appt with vu on 10/28/23. Form is t my desk. Vu is awaiting stress echo results, labs and CXR to sign note and clear pt for surgery. I received a call from [facility] advising she is monet for stress echo tomorrow 11/01/23. She will fax the stat chest CT to us at [phone]. Labs and CXR are now scanned into [employer]. documented in this encounter Plan of Treatment Upcoming Encounters Date Type Department Care Team (Late st Contact Info) Description 12/12/2023 5:00 PM EDT Office Visit [facility] [place] [address] [id number] Vu Brar CRNP [...] Screening 03/05/2023 03/05/2022 COVID-19 Vaccine (4 - season) 2023 07/05/2021, 10/08/2020, 09/10/2020 Mammogram 05/20/2024 05/20/2023, 06/0 03/2021, 01/04/2021, Additional history exists GFR 10/24/2024 10/25/2023, 04/07/2022, 10/31/2021, Additional history exists O2 ASSESSMENT COMPLETED IN PAST YEAR FOR COPD 10/27/2024 10/28/2023 Colonoscopy 11/22/2024 11/22/2014, 11/22/2014 Colorectal Cancer Screening 11/22/2024 Albumin/Creatinine Ratio 11/16/2025 11/16/2022 Pap Smear 02/08/2026 02/08/2023, /0 01/2019, 06/04/2011 Diabetes Screening 10/24/2026 10/25/2023, 0 11/16/2022, 10/31/2021, Additional history exists Cervical Cancer Screening 02/09/2028 HPV/Co-Test 02/09/2028 02/08/2023 Lipid Panel 10/24/2028 10/25/2023, 04/2 07/2022, 04/11/2022, Additional history exists Influenza Vaccine (FLU [...] filedocumented as of this encounter Care Teams Cloth Doubling Machine Operator Relationship Specialty Start Date End Date Vu Brar CRNP [address] [id number] PCP - General Nurse Practitioner 11/16/22 documented as of this encounter
--- OUTSIDE RECORDS SUMMARY | 2023-11-13 06:31 | External Medical Summary | Summary of Care ---
Author Name Unknown Organization [facility] Address [address] [place] [address] Phone [phone] Care Team Providers Care Sliver Lap Machine Tender Name Role Phone Ana Brar Primary Care Provider [phone]- [phone] Reason for Visit * Reason Comments Physical-Exam Pre op for Rt hip re placement on 11/13/[address] Eitan Bonilla at [facility]. Had CXR, EKG done and is now being monet for a stress test. Had labs done on Saturday. Encounter Details Date Type Department Care Team (Late st Contact Info) Description 10/28/2023 12:40 PM EDT Office Visit [facility] 21 [facility] [place] [address] Ana Brar CRNP 21 [place] [address] Preoperative general physical examination*; Viral URI with cough; Essential hypertension with goal blood pressure less than 140/90 Allergies Active Allergy Reactions Criticality Noted Date Comments Guselkumab Rash 06/08/2019 Tremfya documented as of this encounter (statuses as of 11/08/2023) Medications Medication Sig Dispensed Refills Start Date End Date Status CLOBETASOL PROPIONATE 0.05 % EX GELIndications:Oth er psoriasis apply very thinly to palms and soles 2X a day 60G 5 01/21/2006 Active Adalimumab 40 MG/0.4ML Subcutaneous Pen-injector Kit Inject 0.4 mL under the skin every 14 days. 0 Active Ezetimibe 10 MG Oral Tablet (Zetia)Indications :Hyperlipidemia with target LDL less than 100 Take by mouth 1 Tablet in the evening. 90 Tablet 3 04/30/2022 Active Cyclobenzaprine HCl 10 MG Oral Tablet (Flexeril)Indicati ons:Acute midline low back pain without sciatica Take [...] HFA 108 (90 Base) MCG/ACT Inhalation Aerosol SolutionIndication s:Bronchitis, complicated Inhale 2 Puffs by mouth 4 times a day as needed for Cough, Wheezing or Shortness of Breath. 18 g 0 10/13/2023 Active Azelastine HCl 0.1 % Nasal SolutionIndication s:Viral URI with cough 2 sparys in each nostril twice a day 30 mL 5 10/28/2023 Active Emergen-C Vitamin C Oral Tablet Chewable Take by mouth. 0 Active Azelastine HCl 0.1 % Nasal SolutionIndication s:Viral URI with cough 2 sparys in each nostril twice a day 30 mL 5 07/11/2021 4 Discontinue d(Refill) documented as of this encounter (statuses as of 11/08/2023) Active Problems Problem Noted Date Diagnosed Date COPD, group B, by GOLD 2017 classification 03/11 Overview: Per COPD GOLD Classification Anxiety 10/31/2021 Centrilobular emphysema 01/13/2021 Lung nodule 10/13/2019 Overview: Followed by Dr Grier at [facility] Impingement syndrome of right shoulder 7 Encounter for long-term (current) use of medicat ions 03/25/2017 Gastroesophageal reflux disease without esophagi tis 04/25/2015 DDD (degenerative disc disease), cervical 2014 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 Degenerative disc disease, lumbar 03/09/2005 Overview: Followed by [facility]- Dr Wilkerson Tobacco use disorder 03/09/2005 Overview: 03/09/05 - 1-2 ppd for 25+ years Esophageal reflux Essential hypertension with goal blood pressure less than 140/90 Psoriatic arthropathy Overview: Followed by ne, using Humira Lumbar neuritis Pure hypercholesterolemia Overview: Followed by Dr Mccord at [facility] Malignant basal cell neoplasm of skin Overview: Followed by ne at [facility] documented as of this encounter (statuses as [...] on file documented as of this encounter Last Filed Vital Signs Vital Sign Reading Time Taken Comments Blood Pressure 108/64 10/28/2023 12:41 PM EDT Pulse 75 10/28/2023 12:41 PM EDT Temperature 37 C (98.6 F) 10/28/2023 12: 41 PM EDT Respiratory Rate 17 10/28/2023 12:4 1 PM EDT Oxygen Saturation 96% 10/28/2023 12: 41 PM EDT Inhaled Oxygen Concentration - - Weight 81.6 kg (179 lb 14.4 oz) 024 12:41 PM EDT Height - - Body Mass Index 29.04 10/13/2023 10:22 AM EDT documented in this encounter Progress Notes * Ana Brar CRNP - 10/28/2023 12:54 PM EDT Images from the original note were not included. Pre-Operative Medical Evaluation Procedure Information Type of Surgery: right hip replacement. Referring Physician / Surgeon: Dr. Bonilla. Date of procedure: 11/13/2023 Brief History of Present Illness: Presents for preop clearance for Right total hip arthroplasty. She reports significant pain in her right hip, using a crutch for ambulation. Reports that pain has been increasing over time. She reportedly had an EKG which requires follow-up with a stress test. She has the stress test scheduled for this Saturday and will make sure the results are forwarded to this office. She also had blood work done at that time, but does not know what was ordered or the results. Review of Systems Constitutional: Positive for activity change and fatigue. Negative for appetite change. HENT: Negative for congestion. Respiratory: Negative for shortness of breath and wheezing. Cardiovascular: Negative for chest pain. Gastrointestinal: Negative for nausea and vomiting. Genitourinary: Negative for difficulty urinating. Musculoskeletal: Positive for arthralgias (right hip). Neurological: Negative for dizziness and light-headedness. Psychiatric/Behavioral: Negative for sleep disturbance. Medical History Problem List: COPD, group B, by GOLD 2017 classification ([facility]) (03/11/2023) Anxiety (10/31/2021) Centrilobular emphysema ([facility]) (01/13/2021) Lung nodule (10/13/2019) Impingement syndrome of right shoulder (07/08/2017) Encounter for long-term (current) use of medications (03/25/2017) Gastroesophageal reflux disease without esophagitis (04/25/2015) Tobacco abuse (04/25/2015) DDD (degenerative disc disease), cervical (11/15/2014) Palmoplantar pustular psoriasis (01/21/2006) Degenerative disc disease, lumbar (03/09/2005) Tobacco use disorder (03/09/2005) Esophageal reflux Essential hypertension with goal blood pressure less than 140/90 Psoriatic arthropathy ([facility]) Lumbar neuritis Pure hypercholesterolemia Malignant basal cell neoplasm of skin Current Medications Emergen-C Vitamin C Oral Tablet Chewable, Take by mouth. Proventil HFA 108 (90 Base) MCG/ACT Inhalation Aerosol Solution, 2 Puff, Inhalation, QID PRN DULoxetine HCl 60 MG Oral Capsule Delayed Release Particles (Cymbalta), TAKE 1 CAPSULE BY MOUTH EVERY DAY Omeprazole 40 MG Oral Capsule Delayed Release (PriLOSEC), 40 mg, Oral, Daily(AM) Praluent 150 MG/ML Subcutaneous Solution Auto-injector, 150 mg, Intramuscular, Q2 Weeks Ezetimibe 10 MG Oral Tablet (Zetia), 10 mg, Oral, Daily 1900 Azelastine HCl 0.1 % Nasal Solution, 2 sparys in each nostril twice a day Adalimumab 40 MG/0.4ML Subcutaneous Pen-injector Kit, 40 mg, Subcutaneous, Q2 Weeks Cyclobenzaprine HCl 10 MG Oral Tablet (Flexeril), 10 mg, Oral, TID PRN (Patient not taking: Reported on 10/28/2023) CLOBETASOL PROPIONATE 0.05 % EX GEL, apply very thinly to palms and soles 2X a day Allergies: Guselkumab Past Medical History: has a past medical history of Basal cell cancer, Emphysema, unspecified (HCC), Esophageal reflux, Essential hypertension with goal blood pressure less than 140/90, GERD (gastroesophageal reflux disease), Lung nodule, Personal history of colonic polyps (11/22/14), PONV (postoperative nausea and vomiting), Psoriasis, Psoriatic arthropathy (HCC), Pulmonary emphysema (HCC) (02/22/2016), Pure hypercholesterolemia, and Thoracic or lumbosacral neuritis or radiculitis, unspecified. Past Surgical History: has a past surgical history that includes ligate/cut oviduct(s); remove gallbladder; knee arthroscopy/surgery; and Colonoscopy, Diagnostic (Rectum) (11/22/2014). Social History: reports that she has been smoking cigarettes. She started smoking about 48 years ago. She has a 48.2 pack-year smoking history. She has never used smokeless tobacco. She reports current drug use. Drug: Marijuana. She reports that she does not drink alcohol. Family History: family history includes Breast Cancer in her grandmother (paternal); Cancer in her grandmother (paternal); Diabetes in her grandmother (maternal); Heart Disorder in her father and sister; Hypertension in her father and mother; No Known Problems in her sister; depression in her father; hyperlipidemia in her father and mother; none in an other family member. Anesthesia History Type of Anesthesia: MAC-Monitored Anesthesia Care Anesthesia reaction: Yes, vomiting History of surgical complications: None Personal history of venous thromboembolic disease: None Physical Exam Vitals: 10/28/23 1241 Temp: 37 C (98.6 F) Pulse: 75 Resp: 17 SpO2: 96% BP: 108/64 Physical Exam Vitals and nursing note reviewed. Constitutional: General: She is not in acute distress. Appearance: Normal appearance. She is not ill-appearing. HENT: Head: Normocephalic and atraumatic. Right Ear: Tympanic membrane and ear canal normal. Left Ear: Tympanic membrane and ear canal normal. Nose: Nose normal. Eyes: Extraocular Movements: Extraocular movements intact. Cardiovascular: Rate and Rhythm: Normal rate and regular rhythm. Heart sounds: Normal heart sounds. No murmur heard. No friction rub. No gallop. Pulmonary: Effort: Pulmonary effort is normal. No respiratory distress. Breath sounds: Normal breath sounds. No wheezing, rhonchi or rales. Musculoskeletal: Cervical back: Normal range of motion and neck supple. No tenderness. Lymphadenopathy: Cervical: No cervical adenopathy. Skin: General: Skin is warm and dry. Neurological: Mental Status: She is alert and oriented to person, place, and time. Gait: Gait abnormal (antalgic). Psychiatric: Behavior: Behavior normal. Labs reviewed and are significant for: creat 0.6, GFR 97.7. EKG by my review is significant for: stress test with frequent PACs and PAT. Will need to be cleared by cardiology from this standpoint. Surgical Risk Scoring Revised Cardiac Risk Index (RCRI) High-risk type of surgery (examples include vascular and any open intraperitoneal or intrathoracic procedures): 0=No History of ischemic heart disease (history of myocardial infarction or positive exercise test, current compliant of chest pain considered to be secondary to myocardia ischemia, use of nitrate therapy, or ECG with pathological Q waves; do not count prior coronary revascularization procedure unless one of the other criteria for ischemic heart disease is present): 0=No History of heart failure: 0=No History of cerebrovascular disease: 0=No Diabetes mellitus requiring treatment with insulin: 0=No Preoperative serum creatinine >2.0 mg/dL (177 micromol/L): 0=No Pt has revised cardiac index score of: No Risk Factors- 0.4% (95% CI: 0.1-0.8) Screening for Obstructive Sleep Apnea (STOP-BANG) Do you Snore loudly? 0=No Do you often feel Tired, Fatigued, or Sleep? 0=No Has anyone Observed you Stop Breathing or Choking/Gasping during sleep? 0=No Do you have or are you being treated for High Blood Pressure? 0=No BMI over 35? 0=No Age older than 50? 1=Yes Neck size large? (For males - 17 inches or larger, For females - 16 inches or larger) 0=No Male? 0=No Score 0-2:low risk LUIZ, 3-4: intermediate risk of LUIZ, 5-8: high risk LUIZ 1 Assessment and Plan Preoperative general physical examination Patient is medically acceptable for proposed procedure, but will require cardiac clearance from cardiology whom she already sees and is also aware of upcoming surgery. Viral URI with cough Refilled. - Azelastine HCl 0.1 % Nasal Solution; 2 sparys in each nostril twice a day Essential hypertension with goal blood pressure less than 140/90 At goal. Not on medication. Functional Assessment They are able to do minimal physical activity d/t hip pain, not limited by shortness of breath or other symptoms . The patient's functional status is adequate (equal to 4 METS). 1 MET: 4 METs: 4-10 METs: Can take care of self, such as eat, dress or use the toilet. Can walk to block or go up a flight of steps. Can do heavy house work. Surgical Risk Assessment Patient is indeterminate medical risk for the listed procedure. Medication adjustments: None Additional consults or testing: Given results of stress test, cardiology will need to clear patient from cardiac standpoint. documented in this encounter Nursing Notes * Frida Ku CMA - 10/28/2023 12:39 PM EDT Chief Complaint Patient presents with Physical-Exam Pre op for Rt hip replacement on 11/13/[address] Eitan Bonilla at [facility]. Had CXR, EKG done and is now being monet for a stress test. Had labs done on Saturday. Has form for clearance. documented in this encounter Plan of Treatment Upcoming Encounters Date Type Department Care Team (Late st Contact Info) Description 12/12/2023 5:00 PM EDT Office Visit [facility] [address] [id number] Ana Brar CRNP [address] [id number] Scheduled Procedures Name Priority Associated Diagnoses Date/Ti [...] Depression Screening 03/05/2023 03/05/2022 COVID-19 Vaccine ( season) 2023 07/05/2021, 10/08/2020, 09/10/2020 Mammogram 05/20/2024 [...] Not on filedocumented as of this encounter Visit Diagnoses Diagnosis Preoperative general physical examination- Primary Other specified pre-operative examination Viral URI with cough Acute upper respiratory infections of unspecified site Essential hypertension with goal blood pressure less than 140/90 documented in this encounter Care Teams Sliver Lap Machine Tender Relationship Specialty Start Date End Date Ana Brar CRNP [address] [id number] PCP - General Nurse Practitioner 11/16/22 documented as of this encounter
--- OUTSIDE RECORDS SUMMARY | 2023-11-13 06:31 | External Medical Summary | Summary of Care ---
Author Name Unknown Organization [facility] Address [address] [place] [address] Phone [phone] Care Team Providers Care Slab Off Mill Tender Name Role Phone Vu Brar Primary Care Provider +1- [phone] Reason for Visit * Reason Onset Date Comments Pre-Op Testing 10/31/2023 Encounter Details Date Type Department Care Team (Late st Contact Info) Description 10/31/[address] 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 I left detailed msg to inform Felicitas Confer at [facility] of this. Faxed OV note and form to [facility] with confirmation. Placed in corporate secretary bin to be scanned. Pt aware. * Telephone Encounter - Frida Ku CMA - 11/07/2023 3:11 PM EDT Received stress test from [facility]. Will give to Vu tomorrow when she is office. Pt aware of this. * Telephone Encounter - Frida Ku CMA - 11/06/2023 9:45 AM EDT Waiting on stress test from Saturday to clear pt. I was told last wk, that office would be faxing it to us once resulted, but we have yet to receive it. Called [facility] and they have not faxed it. They asked for a fax from us on our CS. I faxed request to [facility] for stress test to [phone] with confirmation. Pre op form is at my desk * Telephone Encounter - Frida Ku CMA - 10/31/2023 10:39 AM EDT Pt had pre op appt with vu on 10/28/23. Form is t my desk. Vu is awaiting stress echo results, labs and CXR to sign note and clear pt for surgery. I received a call from [facility] advising she is monet for stress echo tomorrow 11/01/23. She will fax the stat chest CT to us at [phone]. Labs and CXR are now scanned into [employer]. documented in this encounter Plan of Treatment Upcoming Encounters Date Type Department Care Team (Late st Contact Info) Description 12/12/2023 5:00 PM EDT Office Visit [facility] [address] [phone] Vu Brar CRNP [address] [id number] Scheduled Procedures Name Priority Associated Diagnoses Date/Ti [...] Screening 03/05/2023 03/05/2022 COVID-19 Vaccine ( - 2022- season) 2023 07/05/2021, 10/08/2020, 09/10/2020 Mammogram 05/20/2024 05/20/2023, 06/0 03/2021, 01/04/2021, Additional history exists GFR 10/24/2024 10/25/2023, 2 07/2022, 10/31/2021, Additional history exists O2 ASSESSMENT COMPLETED [...] filedocumented as of this encounter Care Teams Slab Off Mill Tender Relationship Specialty Start Date End Date Vu Brar CRNP [address] [id number] PCP - General Nurse Practitioner 11/16/22 documented as of this encounter
[2023-11-13] MEDS ORDERED: MIDAZOLAM HCL 1 MG/ML 2ML VIAL ONE (06:33)
[2023-11-13] MEDS ORDERED: PROPOFOL IV EMULSION 10 MG/ML 20 ML VIAL IV ONE ×3 (06:43→06:44)
[2023-11-13] MEDS: TRANEXAMIC ACID 1,000 MG **IV Pre-op IV SCH (06:45)
[2023-11-13] MEDS: ceFAZolin 2000MG 2,000 MG/15 ML SYR IV SCH ×2 (06:59→14:32)
[2023-11-13] MEDS: TRANEXAMIC ACID 1,000 MG **IV Intra-op IV SCH (08:17)
[2023-11-13] MEDS: ORTHO JOINT ANESTHETIC ONE (08:18)
[2023-11-13] MEDS: ROPIVACAINE 0.5% HCL/PF 246 MG, Ketorolac (*for OR use only*) 30 MG, EPINEPHrine 30MG/3... INFIL SCH (08:29)
--- NOTE | 2023-11-13 08:34 | Post Operative Brief Note ---
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
--- NOTE | 2023-11-13 08:39 | Operative Report ---
Post Operative Report Pre & Post Diagnosis Operation Date: 11/13/23 07:00 <No data on this case meets the specified criteria> Osteoarthritis right hip proximal femoral enchondroma I identified the patient and participated in the time-out.: Yes Procedure Operation Date: 11/13/23 07:00 <No data on this case meets the specified criteria> Hybrid total hip replacement cemented femur press-fit acetabulum right hip Surgeon Christopher Bonilla MD Database Modeler Radha no resident or fellow available Estimated Blood Loss 75 Findings Consistent with Post-Op Diagnosis Severe osteoarthritis Fluids See anesthesia report Specimens Bone pathology Drains None Complications None Indications Pain right hip Description of Procedure After the patient was appropriate notified site provide consent provide antibiotics from his BM the right lower extremity was prepped and draped use routine fashion with the patient in the left lateral cubitus position. Posterior approach to the hip made. Sharp section carried through skin blunt dissection down to fascia. The IT band was then released as well as the gluteus cecile fascia in line with its fibers. Retractor placed care taken to protect the sciatic nerve. The short external rotators were released and the capsule teed the hip dislocated the femoral neck resected and revised once. Excellent acetabular exposure was achieved the labrum was excised there was grade 4 disease throughout the acetabulum this was reamed up to 50 to 50 cup impacted in the appropriate anteversion inclination. A 6 x 20 screw was placed with excellent purchase. Dual movement mobility liner was then seated. Femur was then flexed internally rotated and broached up to a 3 trial reduction was excellent stable in all planes. +7 neck length was excellent. The trial implants were then removed the femur was then prepared with all of the cement technique with the irrigation cleaning packing cement restrictor and then cemented into position after 14 minutes the implant was then inspected there was some minor cement posteriorly which was left alone everything else was good there was no cement in the cup. Permanent head and stem were then seated and the hip reduced it was stable in all planes leg lengths were excellent the wound was then closed with #2 Vicryl for the capsule and the short external rotators the gluteus cecile fascia the IT band in the deep fat and then 2-0 Vicryl for the superficial layer and stainless to clips for skin appropriate dressing applied the patient transferred recovery in satisfactory addition having tolerated the procedure well. Summary of implants [employer] Interpreting[employer] total hip replacement 50 acetabular shell sector cup whole home health assistant 6.5 x 20 screw dual mobility metal insert 50 mm 3 high offset cemented stem [place] 43/22 ball 22.225+7 head metal. EBL 75 cc or less crystalloid per anesthesia bone pathology pending. DVT prophylaxis to begin tomorrow. I attest to the content of the Intraoperative Record and any orders documented therein. Any exceptions are noted below.
--- NOTE | 2023-11-13 08:40 | Orthopedic Progress Note ---
Date of Service November 13, 2023 Orthopedic Progress Note Patient tolerated procedure well denies chest pain shortness of breath fever chills nausea vomiting or headache. Vital signs are stable she is afebrile. Postop leg lengths are excellent. Wound dressing clean dry and intact. Neurovascular check limited by spinal. X-ray pending. Family contacted.
--- NOTE | 2023-11-13 08:42 | Discharge Summary ---
Date of Service November 14, 2023 Admission HPI Per Admitting Provider History of Present Illness (including history relevant to procedure): This 63-year-old female presents to the clinic today for her preoperative history and physical examination. The patient reports she has had issues with the right hip for approximately 10 years. Does not recall any specific trauma. However, it has progressively worsened over the last 10 years. She is now to the point where she has difficulty sleeping. She non-reciprocates stairs. She has had back issues in the past and up until recently thought it was simply her back. However, she feels the pain currently in her groin as well as her buttock. Occasionally, she will get some numbness down her leg into her toes. Often times, she will feel like someone is stabbing her in her anterior right thigh. She has previously done physical therapy before the COVID- pandemic for about 6 weeks that only made it worse. She has also been to Pain Management where she has gotten 2 different injections into her low back and her SI joint. She s tates she also had an ultrasound-guided corticosteroid injection into her right hip which did not provide any pain relief. She is electing to proceed with surgical intervention at this time. Review Of Systems: A 12 point review of systems is performed and is unremarkable except for those things stated in the HPI and past medical history. Past Medical History: Problems: Lung mass Osteoarthritis of right hip Arthritis of right hip PVC (premature ventricular contraction) Hyperlipidemia Right hip pain Notalgia paresthetica Low back pain Psoriatic arthritis Common wart Changing skin lesion Drug rash Epidermal cyst Chronic daily headache Long-term use of high-risk medication Shortness of breath Psoriasis vulgaris Actinic keratoses Weight disorder BCC (basal cell carcinoma of skin) Elevated cholesterol Hypertension Tobacco abuse FAMILY HISTORY OF OTHER SPECIFIED MALIGNANT NEOPLASM Psoriatic arthritis Palmoplantaris pustulosis History of malignant neoplasm of skin Psoriasis Procedure History Procedure Procedure Date Comments Arthroscopy and biopsy of knee - 2005 Cholecystectomy - November 2004 Oral surgery 10/2021 Shave biopsy and cauterization of skin 06/28/2021 Injection into joint - SI 05/09/2021 Shave biopsy of skin 04/01/2019 Chest x-ray 01/15/2018 - IMPRESSION: No active disease in the chest Excision 10/21/2017 - 2 cysts Injection around joint 07/08/2017 - Right shoulder injected with 40 mg Depomedrol and 1 mL 2% lidocaine. MRI of cervical spine 05/21/2017 - Broad based posterior disc osteophyte complex at C5-C6 resulting in mild cent ral canal naarrowing. There is also moderate and severe let-sided neural foraminal narrowing. Mild left sided neural foraminal narrowing at C6-C7. TIny broad-based posterior disc bulges at C3-C4 and C4-C5 without ignificant central canal narrowing. Chest x-ray 03/27/2017 - IMPRESSION:No acute cardiopulmonary disease. Notably, the sinsitivity of radiograph for intrathoracic metastases is low. If there is clinical concernfor thoracic metastatic involvement, CT of the chest should be obtained. Mammogram 08/02/2015 - IMPRESSION:OVAL NODULE MEASURING 3 MM WIDE X 5 MM LONG, UNCHANGED. BENIGN, NO EVIDENCE OF MALIGNANCY. NORMAL F/U IS RECOMMENDED IN 12 MO. ULTRASOUND BREAST LIMITED 08/02/2015 - LEFT BREAST: OVAL NODULE MEASURING 3 MM WIDE X 5 MM LONG, UNCHANGED. BENIGN, NO EVIDENCE OF MALIGNANCY. NORMAL F/U IS RECOMMENDED IN 12 MO.COMPLEX CYST ON U/S, DECREASED IN SIZE.. BEGIGN, NO EVIDENCE OF MALIGNANCY. NORMAL F/U RECOMMENDED IN 12 MO.RIGHT BREAST: NEGATIVE, NO EVIDENCE OF MALIGNANCY. NORMAL F/U RECOMMENDED IN [address] of sinuses 02/08/2015 - IMPRESSION: Negative sinus CT Diagnostic mammogram 02/04/2015 - IMPRESSION: Left breast: probably benign Bi Rad CAT 3Overall assessment- CAT 3- Probably benign short term follow up with unilateral left breastUltrasound at the time of patients annual mammogram. ULTRASOUND BREAST LIMITED 02/04/2015 - Targeted U/S demonstrates a complex cyst measuring 4 mm wide x 2 mm long x 2 mm high at 6 o'colck middle depth, unchanged. Colonoscopy 11/22/2014 - Hyperplastic polyp, repeat in 10 years.Colonoscopy completed by Dawit Thurston MD MRI of cervical spine 08/25/2014 - 1. Small to moderate C4-5 disk protrusion without significant central canal compromise or foraminal encroachment at this level.2. Moderate diffuse annular bulging at C5-6 with associate central canal stenosis andbilateral foraminal narrowing as descrbied above.3. No cervical cord compression or cord edema observed. Shave biopsy of skin 10/05/2011 Tubal ligation 1992 Allergies and Sensitivities: Tremfya(Rash) Current Home Meds: (Last Updated 10/24 14:16) DULoxetine (DULoxetine 60 mg oral delayed release capsule) 60 mg PO Daily adalimumab (Hyrimoz Prefilled Pen 40 mg/0.4mL subcutaneous kit) inject 1 pen under the skin every 14 days albuterol (Albuterol (Eqv-Proventil HFA) 90 mcg/inh inhalation aerosol) 20 g, 0 Refill(s), INHALE 2 PUFFS BY MOUTH 4 TIMES A DAY NEEDED FOR COUGH, WHEEZING OR SHORTNESS OF BREATH. Responsible Provider: NARINDER HEALY 10/24 14:16 alirocumab (Praluent Pen 150 mg/mL subcutaneous solution) 150 mg subQ [id number] ezetimibe (Zetia 10 mg oral tablet) 10 mg PO Daily ibuprofen (Advil 200 mg oral tablet) 400 mg PO Daily naproxen 220 mg PO q12h omeprazole (omeprazole 40 mg oral delayed release capsule) 40 mg PO Daily Initial Wt: 10/24 77.0 kg 169 lb Principal Diagnosis Status post hybrid right total hip replacement Discharge Data Allergies Allergy/AdvReac Type Severity Reaction Status Date / Time guselkumab [From Tremfya] Allergy Mild Rash Verified 11/13/23 05:48 Vaccinations None Consultations None Procedures Performed Operation Date: 11/13/23 07:00 <No data on this case meets the specified criteria> Hybrid right total hip replacement Ordered Studies Bone pathology x-ray Hospital Course (1) Status post right hip replacement: Continue care pathway Total Time Total Time Spent Total Time Spent (In Minutes): 5 minutes Discharge Plan Discharge Items Reason For Visit: Right Hip Osteoarthritis Discharge Diagnosis: Same Condition on Discharge: Good Activity: Per Instructions section Lifting: No more than 10 pounds Bathing: Keep incision dry Sexual Activity: Wait until after follow-up appointment Exercise/Sports: Wait until after follow-up appointment Follow-up/Referrals: Ayala Carrasco CRNP [Outside Practitioners] - Addtl Attending Provider Instructions: DIET: * Resume previous diet. MEDICATIONS: * Please take your prescriptions as instructed at your pre-op appointment and/or see medication discharge instructions listed above. * If concerns develop, call your physician's office at . SPECIAL CARE INSTRUCTIONS: * Ice/Elevate as instructed. * Keep dressing clean, dry, intact. * Your surgical extremity may be discolored due to prepping agents used on the skin. A bluish-green tint is a normal variant and should not cause alarm. Call your doctor at [phone] if: * Temperature above 101 degrees * Pain not relieved by pain medicine ordered * There is increased drainage or redness from any incision * You have any unanswered questions, problems or concerns. FOLLOW UP VISIT: * If not already scheduled, please call the office at to schedule a follow-up appointment. Pending Studies at Discharge: Yes (Bone pathology) Stand-Alone Forms: My [facility] Medications and DC Order Prescriptions: No Action omeprazole 40 mg capsule,delayed release(DR/EC) 40 mg PO QAM Humira 40 mg/0.8 mL syringe kit 40 mg subcut Q14D ezetimibe 10 mg tablet 10 mg PO QAM ibuprofen 200 mg Tablet 200 mg PO Q6H PRN (Reason: Pain) Emergen-C 500 mg Tablet,Chewable 1 tab PO BID oxymetazoline [Long Acting Nasal [place]] 0.05 % [place],Non-Aerosol 2 spray INTRANASAL Q12H PRN (Reason: Nasal Congestion) albuterol 90 mcg/actuation Aerosol INHALATION atenolol 25 mg Tablet 25 mg PO DAILY Praluent Pen 150 mg/mL Pen Injector 150 mg SUBCUT Q14D Patient Comments: takes every 2 weeks duloxetine 60 mg capsule,delayed release(DR/EC) 60 mg PO QAM Admission Data Admit Date/Time: 11/13/23 08:55 Attending Provider: Christopher Bonilla Admit Provider: Christopher Bonilla Primary Care Provider: Ana Brar Other Providers: [facility],Home Healthcare; [facility]
--- NOTE | 2023-11-13 08:48 | Operative Report ---
Post Operative Report Pre & Post Diagnosis Operation Date: 11/13/23 07:00 Pre-Op Diagnosis: Right Hip Osteoarthritis Post-Op Diagnosis: Right Hip Osteoarthritis I identified the patient and participated in the time-out.: Yes Procedure Operation Date: 11/13/23 07:00 Actual Procedures p Right Total Hip Arthroplasty, Cemented(Right) - Christopher Bonilla MD Surgeon NORIS Bonilla MD [place] Machinist Radha PEARCE no resident or fellow available Estimated Blood Loss 75 Findings Consistent with Post-Op Diagnosis see operative report Specimens see operative report Drains none Complications none Disposition Accompanied Patient To Recovery: Yes Indications This 63 year old female presented to the office with complaints of persisting right hip pain. She had tried conservative care measures without improvement. She elected to proceed with surgical intervention after being educated about potential risks and outcomes. Preoperative imaging was obtained. Description of Procedure The patient was administered a spinal anesthetic and then taken to the operating room where she was given sedation. She was prepped and draped in the usual st erile fashion. Please see Dr. Bonilla's operative report for specifics of the procedure. I was present for the entire case from initial patient positioning through final closure. Assistance was provided in tissue retraction, hemostasis, trial implant placement, final implant placement, and final wound closure. The patient was taken to the recovery room in satisfactory condition. I attest to the content of the Intraoperative Record and any orders documented therein. Any exceptions are noted below.
[2023-11-13] MEDS ORDERED: PHENYLEPHRINE HCL 10 MG/ML VIAL ONE (08:49)
[2023-11-13] MEDS ORDERED: ePHEDrine sulfate 50 MG/5 ML SYR ONE (08:49)
[2023-11-13] MEDS ORDERED: MAGNESIUM HYDROXIDE SUSP 30 ML UDC PO PRN (09:44)
[2023-11-13] MEDS ORDERED: diphenhydrAMINE 50 MG/ML VIAL IV PRN (09:44)
[2023-11-13] MEDS ORDERED: METOCLOPRAMIDE HCL INJ 5 MG/ML 2 ML VIAL IV PRN (09:44)
[2023-11-13] MEDS ORDERED: NALOXONE HCL 0.4 MG/1 ML VIAL/CARP IV PRN (09:44)
[2023-11-13] MEDS ORDERED: ALUMINUM/MAGNESIUM SUSP 30 ML UDC PO PRN (09:44)
[2023-11-13] MEDS ORDERED: bisacodyL 10 MG SUPP PR PRN (09:44)
--- NOTE | 2023-11-13 09:51 | XRay Report ---
AP PELVIS History: Right total hip arthroplasty. Degenerative arthritis. Postop. FINDINGS: The patient is status post a right total hip arthroplasty. The hardware is intact. No fract ure or dislocation. Skin barrett are in place. IMPRESSION: Right total hip arthroplasty. No evidence for hardware complication ACT 112: Negative or not required by law. Electronically signed by: Cam Perez M.D. 11/13/2023 9:50 AM
[2023-11-13] MEDS: HYDROmorphone INJ 0.5 MG/0.5 ML SYR IV PRN (09:53)
[2023-11-13] MEDS: SODIUM CHLORIDE 0.9% 1,000 ML IV SCH (09:53)
--- NOTE | 2023-11-13 10:26 | Anesthesiology Progress Note ---
Date of Service November 13, 2023 Anesthesia Post Procedure Vital Signs Vital Signs: Temp Pulse Pulse Resp BP Pulse Ox O2 Del Method 11/13/23 09:57 55 L 16 150/86 H 95 Room Air 11/13/23 09:30 36.3 C L 62 16 147/84 H 95 Room Air 11/13/23 09:15 58 L 18 157/90 H 96 Room Air 11/13/23 09:05 75 16 123/79 100 Oxymask 11/13/23 08:55 59 L 16 141/81 H 99 Oxymask 11/13/23 08:45 36.0 C L 60 16 129/77 99 Oxymask 11/13/23 05:55 36.6 C 61 20 134/83 98 Room Air O2 Flow Rate 11/13/23 09:57 11/13/23 09:30 11/13/23 09:15 11/13/23 09:05 4 11/13/23 08:55 6 11/13/23 08:45 6 11/13/23 05:55 Pain Intensity Right Hip: Pain Intensity: 5 Transfer of Care Handoff Completed per policy Notes Mental Status: alert / awake / arousable Patient Amnestic to Procedure: Yes Nausea / Vomiting: adequately controlled Pain: adequately controlled Airway Patency, RR, SpO2: stable & adequate BP & HR: stable & adequate Hydration State: stable & adequate Neuraxial Anesthesia: was administered and sensory block is resolving Anesthetic Complications: no major complications apparent and Pt Satisfied with anesthetic care
[2023-11-13] MEDS: PANTOprazole 40 MG TAB PO SCH (10:38)
[2023-11-13] MEDS: DULoxetine HCL 60 MG CAP PO SCH (10:38)
[2023-11-13] MEDS: DOCUSATE SODIUM 100 MG CAP PO SCH (10:42)
[2023-11-13] MEDS: KETOROLAC TROMETHAMINE 15 MG/ML VIAL IV SCH (10:42)
[2023-11-13] MEDS: MULTIVITAMIN TAB PO SCH (10:42)
[2023-11-13] MEDS: ATENOLOL 25 MG TABLET PO SCH (11:52)
[2023-11-13] MEDS: EZETIMIBE 10 MG TAB PO SCH ×2 (11:55→21:34)
[2023-11-13] MEDS ORDERED: Nursing to Pharmacy Communication SCH (12:00)
--- NOTE | 2023-11-13 12:05 | Orthopedic Progress Note ---
Date of Service November 13, 2023 Assessment & Plan Admission and Anticipated Discharge Date Admission Date: November 13, 2023 Orthopedic Progress Note Postop check status post hybrid total hip replacement cemented femur press-fit acetabulum. Is sitting up in the chair having lunch. She denies chest pain shortness of breath fever chills nausea vomiting or headache. Vital signs are stable she is afebrile. Neurovascular check femoral sciatic nerve is normal. Wound dressing clean dry and intact. Postop x-rays look excellent. Assessment doing well continue care pathway saline lock IV if she is eating well. Begin anticoagulation tomorrow. Discharge tomorrow after PT OT.
[2023-11-13] MEDS: oxyCODONE HCL IR 5 MG TAB (IMMEDIATE RELEASE) PO PRN (13:12)
[2023-11-13] MEDS ORDERED: Scopolamine CHECK PATCH PLACEMENT SCH (16:00)
[2023-11-13] MEDS: ASCORBIC ACID 500 MG TAB PO SCH (17:12)
[2023-11-13] MEDS: FERROUS GLUCONATE 324 MG TAB PO SCH (17:12)
[2023-11-13] MEDS: SENNA 8.6 MG TAB PO SCH (21:33)
[2023-11-13] MEDS: METOPROLOL SUCC 25MG EXT REL TAB PO SCH (21:33)
--- NOTE | 2023-11-14 06:31 | Orthopedic Progress Note ---
Date of Service November 14, 2023 Assessment & Plan Admission and Anticipated Discharge Date Admission Date: November 13, 2023 Orthopedic Progress Note Postop day #1 status post hybrid right total hip replacement. Patient is sitting up in the chair is no issues. She denies any chest pain shortness of breath fever chills nausea vomiting or headache. Vital signs are stable she is afebrile febrile. Neurovascular check femoral sciatic nerve is normal. Wound dressing clean dry and intact. Hip located. Supple motion. A.m. labs are pending. Assessment doing well. Plan is to discharge home today after PT OT. Case management assessment. Start anticoagulation today. Dressing changed by PA this morning prior to discharge.
[2023-11-14 06:47] LABS: Basophils # (auto) 0.03 K/uL (0.00-0.20); Basophils % (auto) 0.2 %; Eosinophils # (auto) 0.01 K/uL (0.00-0.50); Eosinophils % (auto) 0.1 %; Hematocrit (blood only) 37.1 % (37.0-47.0); Hemoglobin 12.1 g/dl (12.0-16.0); Immature Granulocytes # (auto) 0.07 K/uL (0.01-0.20); Immature Granulocytes % (auto) 0.5 %; Lymphocytes % (auto) 22.5 %; Mean Corpuscular Hemoglobin 31.2 pg (25.0-34.0); Mean Corpuscular Hgb Conc 32.6 g/dL (32.0-36.0); Mean Corpuscular Volume 95.6 fL (80.0-100.0); Mean Platelet Volume 9.9 fL (9.4-12.4); Monocytes # (auto) 1.48 K/uL (0.11-0.59); Monocytes % (auto) 10.8 %; Neutrophils # (auto) 9.06 K/uL (1.40-6.50); Neutrophils % (auto) 65.9 %; Platelet Count 324 K/uL (130-400); RDW Coefficient of Variation 14.2 % (11.5-14.5); RDW Standard Deviation 49.4 fL (36.4-46.3); Red Blood Count 3.88 M/uL (4.20-5.40); White Blood Count 13.75 K/ul (4.8-10.8)
[2023-11-14 06:56] LABS: BUN Creatinine Ratio 17.6 (10-20); Calcium 8.8 mg/dl (8.6-10.3); Creatinine Clr Calc Pharmacy 94.1 ml/min; Est GFR (African American) 108.7 ml/min; Est GFR (Non-African American) 93.7 ml/min; Potassium 3.8 mmol/L (3.5-5.1)
[2023-11-14] MEDS: dexAMETHasone 10 MG in SYRINGE 0 ML IV SCH (08:21)
[2023-11-14] MEDS: APIXABAN 2.5 MG TAB PO SCH (08:22)
--- NOTE | 2023-11-14 09:09 | Orthopedic Progress Note ---
Date of Service November 14, 2023 Assessment & Plan (1) Status post right hip replacement: Plan: The patient was evaluated in room 307. Her postsurgical dressings were changed by me. These may be left in place until she is seen in the office in 2 weeks. She can also have them changed on Saturday by home health services if needed for soiling. Continue sleeping with a pillow between her legs and maintaining her total hip precautions. Prescriptions for Percocet and Eliquis were sent to her pharmacy. She will start the Eliquis this evening. Call the office with any other concerns. Written discharge instructions were provided. Admission and Anticipated Discharge Date Admission Date: November 13, 2023 Subjective This 63-year-old female is seen today in her room. She is 1 day status post right total hip arthroplasty. She states she did not sleep well. She was unfamiliar with the surroundings, and was woken from sleep numerous times due to vital checks and overhead pages. He currently denies any chest pain, shortness of breath, nausea, vomiting, abdominal pain, or significant hip pain. She has already been up and about in the room. She is currently sitting in her bedside chair and has finished her breakfast. She is waiting for PT. No other complaints. She feels ready to be discharged to home. Review of Systems Review of Systems: Unchanged from yesterday. Physical Exam Physical Exam: General: Well-developed, well-nourished, middle-aged female, in no acute distress. Sitting in her bedside chair. Alert and oriented. Conversive. Skin: Warm and dry with good turgor. No rashes. No ecchymosis or erythema. She has a postsurgical dressing in place on the right hip. Upon removal, barrett are in place. Wound edges are well-approximated. No erythema or warmth. No drainage. There is scant blood on her most inner dressings. Musculoskeletal: The patient is able to rise from her bedside chair easily. She stands with her walker without difficulty. There is supple motion of the right hip. Neurologic: Gross sensation is intact across the right buttock and leg by soft touch. Peripheral pulses are 2+. Results & Data Vital Signs (Past 12 Hours) Vital Signs Temp Pulse Resp BP Pulse Ox O2 Del Method 11/14/23 07:22 36.5 C 57 L 18 109/64 95 Room Air 11/14/23 03:09 36.5 C 68 16 96/59 L 93 Room Air 11/13/23 23:03 36.4 C L 61 16 103/64 94 Room Air 11/13/23 21:35 60 Laboratory Results CBC obtained this morning shows a white count of 13.75. H&H of 12.1 and 37.1. Platelets are 324,000. BMP shows sodium 139, potassium 3.8, chloride 109. Anion gap of 6. BUN 12 and creatinine 0.68. Glucose is normal this morning at 96.
--- OUTSIDE RECORDS SUMMARY | 2023-11-14 14:52 | External Medical Summary | Summary of Care ---
Author Name Unknown Organization [facility] Address [address] [place] [address] Phone [phone] Care Team Providers Care Belt Maker Helper Name Role Phone Ana Brar Ruth MURPHY Primary Care Provider [phone] Encounter Details Date Type Department Care Team (Late st Contact Info) Description 10/23/2023 Result Scan Unspecified Department <No scans attached> Allergies Active Allergy Reactions Criticality Noted Date Comments Guselkumab Rash 06/08/2019 Tremfya documented as of this encounter (statuses as of 11/13/2023) Medications Medication Sig Dispensed Refills Start Date [...] of Breath. 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 Degenerative disc disease, lumbar 03/09/2005 Overview: Followed by [facility]- Dr Wilkerson Tobacco use disorder 03/09/2005 Overview: 03/09/05 - 1-2 ppd for 25+ years Esophageal reflux Essential hypertension with goal blood pressure less than 140/90 Psoriatic arthropathy Overview: Followed by ne, using Daisy Lumbar neuritis Pure hypercholesterolemia Overview: Followed by Dr Mccord at [facility] Malignant basal cell neoplasm of skin Overview: Followed by ne at [facility] documented as of this encounter (statuses as of 11/13/2023) Resolved Problems Problem Noted Date Diagnosed Date Resolved Date Tobacco abuse 04/25/2015 10/31/2020 documented as of this encounter (statuses as of 11/13/2023) Immunizations Name Administration Dates Next Due COVID-19 [...] on file documented as of this encounter Plan of Treatment Upcoming Encounters Date Type Department Care Team (Late st Contact Info) Description 12/12/2023 5:00 PM EDT [facility] [address] [phone] Ana Brar CRNP [address] [id number] Scheduled Procedures Name Priority Associated Diagnoses Date/Ti [...] 05/19/2009 DISCUSS TOBACCO CESSATION (REFER TO SMARTSET #2184) 07/31/2020 07/31/2019, 06/29/2019 DTaP,Tdap,and Td Vaccines (2 - Td or Tdap) 12/20/2021 12/21/2011 Depression Screening 03/05/2023 03/05/2022 COVID-19 Vaccine ( - season) 2023 07/05/2021, 10/08/2020, 09/10/2020 Mammogram 05/20/2024 05/20/2023, 06/0 03/2021, 01/04/2021, Additional history exists GFR 10/24/2024 10/25/2023, 04/2 07/2022, 10/31/2021, Additional history exists O2 ASSESSMENT [...] Not on filedocumented as of this encounter Procedures Procedure Name Priority Date/Time Associated Diagnosis Comments EKG SCANNED RESULT 10/23/2023 documented in this encounter Results * EKG SCANNED RESULT (10/23/2023) 10/23/2023 No Physician Data Unknown EKG documented in this encounter Care Teams Belt Maker Helper Relationship Specialty Start Date End Date Ana Brar CRNP [address] [phone] PCP - General Nurse Practitioner 11/16/22 documented as of this encounter
== END 2023-11-14 11:02 | disposition home health service (06) ==
LOC: 3E 05:12 → ASU 05:12